=== PATIENT | male | born 1960 | race Caucasian/White ===

== ENCOUNTER 2020-08-13 13:10 | Outpatient (REF) | payer OTHER, SELFPAY | END 2020-08-13 13:11 | disposition home or self-care (01) | LOC: HO.LAB 13:10 | PROVIDERS: Visit Provider Internal Medicine | DX: Z20.828 Contact with and (suspected) exposure to other viral communicable diseases (principal) | CPT/HCPCS: 87635 ==

== ENCOUNTER 2021-03-01 07:42 | Outpatient (REF) | payer OTHER, SELFPAY ==
[2021-03-01 09:38] LABS: Alanine Aminotransferase 27 U/L (0-40); Albumin Level 4.4 g/dL (3.5-5.0); Alkaline Phosphatase 73 U/L (39-117); Anion Gap 12 (12-20); Aspartate Amino Transferase 19 U/L (5-37); Bilirubin Total 0.4 mg/dL (0.0-1.0); Blood Urea Nitrogen 18 mg/dL (9-16); Calcium 9.9 mg/dL (8.4-10.2); Carbon Dioxide 30 mmol/L (22-29); Chloride 105 mmol/L (96-108); Cholesterol 177 mg/dL; Estimated Glomerular Filt Rate > 60; Glucose Fasting 119 mg/dL (60-99); HDL Cholesterol 37 mg/dL; LDL Cholesterol Calculated 112 mg/dl; Potassium 4.7 mmol/L (3.3-5.1); Sodium 142 mmol/L (135-145); Total Protein 7.4 g/dL (6.5-8.0); Triglycerides 140 mg/dL
== END 2021-03-01 07:43 | disposition home or self-care (01) ==
LOC: HO.LAB 07:42
PROVIDERS: PCP Internal Medicine; Visit Provider Internal Medicine
DX: E78.00 Pure hypercholesterolemia, unspecified (principal)
CPT/HCPCS: 36415; 80053; 80061

== ENCOUNTER 2021-07-19 17:52 | Emergency (ER) | payer OTHER, SELFPAY ==
[2021-07-19 17:56] VITALS: BP 142/89; PULSE 98; RESP 18; TEMP 36.8; O2SAT 96; BMI 24.9
--- NOTE | 2021-07-19 22:00 | ED.GENADULT ---
HPI - General Adult General Chief complaint: General Medical Stated complaint: multiple complaints Time Seen by Provider: 07/19/21 21:56 Source: patient and old records reviewed History of Present Illness HPI narrative: Patient states yesterday was taking a shower and he noticed a ball formed in his right groin. No significant pain. He did have some mucus and a bowel movement. No nausea or vomiting. He has never had anything like this before. He denies any causative symptoms. No heavy lifting. No dysuria Related Data Previous Rx's Medication Instructions Recorded docusate sodium 100 mg capsule 100 mg PO DAILY PRN 90 Days #90 cap 08/28/20 (Colace) polyethylene glycol 3350 17 17 g PO DAILY 30 Days #510 g 08/28/20 gram/dose oral powder (Miralax) cyclobenzaprine 10 mg tablet 10 mg PO BEDTIME PRN 30 Days #30 11/27/20 tab ibuprofen 800 mg tablet 800 mg PO Q8H PRN 10 Days #30 tab 11/27/20 aspirin 81 mg tablet,delayed 81 mg PO DAILY #90 tab 05/03/21 release atorvastatin 20 mg tablet 20 mg PO DAILY 90 Days #90 tab 05/07/21 docusate sodium 100 mg capsule 100 mg PO BID #30 cap 07/19/21 (Colace) Allergies Allergy/AdvReac Type Severity Reaction Status Date / Time Penicillins [PENICILLINS] Allergy Intermediate HIVES Verified 07/19/21 17:56 Review of Systems Constitutional: Comments: No fevers Respiratory: Comments: No cough or difficulty breathing Gastrointestinal: Comments: No abdominal pain. No diarrhea. No constipation. Positive mucus in his stool this morning Genitourinary: Comments: Swelling in his right groin PMFSH Past Medical History Medical History (Updated 07/19/21 @ 22:35 by Timoteo Dubose MD) Constipation Hypertension Muscle pain Overweight (BMI 25.0-29.9) Pure hypercholesterolemia Surgical History Status post medial meniscus repair of left knee (~2015) Family History Family History Father Prostate cancer Mother Cancer Diabetes Social History Social History Advance Directives: No Advance Directives Information Provided: Yes Physical Exam Vital Signs: Vital Signs: Last Vital Signs Temp 98.2 F 07/19/21 17:56 Pulse 98 07/19/21 17:56 Resp 18 07/19/21 17:56 BP 142/89 H 07/19/21 17:56 Pulse Ox 96 07/19/21 17:56 Body Mass Index 24.9 Const: Other: Awake and alert and in no acute distress Resp: Other: No respiratory distress Cardio: Other: Regular rate and rhythm GI: Other: Soft nontender nondistended normoactive bowel sounds : Other: Patient was some fullness in his right inguinal canal. Consistent with early hernia. Worse with straining and coughing. No extension into the scrotum. He states he gets bigger when he strains to have a bowel movement Skin: Other: Warm pink and dry Course Course Course Narrative: Hernia Chronic constipation No evidence of acute bowel obstruction however. Given chronic constipation, will refer to GI. Given more recent incomplete hernia, will refer to surgery. Colace in the meantime Discharge Plan Discharge Clinical Impression: Constipation Qualifiers: Constipation type: unspecified constipation type Qualified Code(s): K59.00 - Constipation, unspecified Inguinal hernia Qualifiers: Obstruction and gangrene presence: without obstruction or gangrene Laterality: unilateral Recurrence: not specified as recurrent Qualified Code(s): K40.90 - Unilateral inguinal hernia, without obstruction or gangrene, not specified as recurrent Patient Disposition: Home, Self-Care Instructions: Constipation (ED), Inguinal Hernia (ED) Prescriptions: New docusate sodium [Colace] 100 mg capsule 100 mg PO BID Qty: 30 RF: 0 No Action aspirin 81 mg tablet,delayed release (DR/EC) 81 mg PO DAILY Qty: 90 RF: 0 atorvastatin 20 mg tablet 20 mg PO DAILY 90 Days Qty: 90 RF: 0 polyethylene glycol 3350 [Miralax] 17 gram/dose powder 17 g PO DAILY 30 Days Qty: 510 RF: 11 docusate sodium [Colace] 100 mg capsule 100 mg PO DAILY PRN (Reason: constipation) 90 Days Qty: 90 RF: 3 cyclobenzaprine 10 mg tablet 10 mg PO BEDTIME PRN (Reason: muscle spasm) 30 Days Qty: 30 RF: 0 ibuprofen 800 mg tablet 800 mg PO Q8H PRN (Reason: pain) 10 Days Qty: 30 RF: 0 Referrals: Nuria Stark MD [Physician] - 2 days
[2021-07-19 22:28] VITALS: BP 165/82; PULSE 61; RESP 16; TEMP 36.6; O2SAT 99
== END 2021-07-19 22:52 | disposition home or self-care (01) ==
PROVIDERS: Emergency Provider Emergency Medicine
DX: K59.00 Constipation, unspecified (principal); K40.90 Unilateral inguinal hernia, without obstruction or gangrene, not specified as recurrent; Z79.899 Other long term (current) drug therapy
CPT/HCPCS: 99283; 99284

== ENCOUNTER → 2021-08-11 10:23 | Outpatient (BNVA) | payer OTHER, SELFPAY | PROVIDERS: Referring Provider Internal Medicine; Visit Provider Nurse Practitioner Family ==

== ENCOUNTER → 2021-08-26 12:43 | Outpatient (BNVA) | payer OTHER, SELFPAY | PROVIDERS: PCP Internal Medicine; Visit Provider Surgery ==

== ENCOUNTER 2021-09-15 06:01 | Day surgery (SDC) | payer OTHER, SELFPAY ==
[2021-09-08 11:52] VITALS: BMI 24.7
--- NOTE | 2021-09-12 11:49 | HO.ANESPROP2 ---
Documented by User: Belinda Gonzalez NP 09/12/21 11:50 HPI - Anesthesia Eval Consult details Narrative: 60yo M for Bilateral Hernia Repair Inguinal with Mesh PMFSH Active Problems Active Problems: All Active Problems (Updated 08/26/21 @ 13:30 by Sage Wei MD) Bilateral inguinal hernia (Acute) Muscle pain (Acute) Overweight (BMI 25.0-29.9) (Acute) Pure hypercholesterolemia (Acute) Constipation (Acute) Past Medical History Medical History Bilateral inguinal hernia Constipation Hypertension Muscle pain Overweight (BMI 25.0-29.9) Pure hypercholesterolemia Family History Family History Father Prostate cancer Mother Cancer Diabetes Brother Prostate cancer Surgical History Surgical History H/O colonoscopy Status post medial meniscus repair of left knee Social History Social History Alcohol intake: never Patient Tobacco Use Status: Never used Tobacco Advance Directives Information Provided: Yes (informational brochure mailed) Advance Directives on File: No Meds Allergies Allergy/AdvReac Type Severity Reaction Status Date / Time Penicillins [PENICILLINS] Allergy Intermediate HIVES Verified 09/15/21 07:09 Exam Exam Date and Time: September 12, 2021 1149 Height,Weight and Vital Signs: Height 5 ft 8 in Weight 74 kg Assessment and Plan Assessment Anesthesia Assessment: Chart Reviewed Documented by User: Mikaela Rios MD 09/15/21 07:51 PMFSH Active Problems Active Problems: All Active Problems (Updated 08/26/21 @ 13:30 by Sage Wei MD) Bilateral inguinal hernia (Acute) Muscle pain (Acute) Overweight (BMI 25.0-29.9) (Acute) Pure hypercho he lesterolemia (Acute) Constipation (Acute) Past Medical History Medical History Bilateral inguinal hernia Constipation Hypertension Muscle pain Overweight (BMI 25.0-29.9) Pure hypercholesterolemia Family History Family History Father Prostate cancer Mother Cancer Diabetes Brother Prostate cancer Surgical History Surgical History H/O colonoscopy Status post medial meniscus repair of left knee History of Problems with Anesthesia: No Social History Social History Alcohol intake: never Patient Tobacco Use Status: Never used Tobacco Advance Directives Information Provided: Yes (informational brochure mailed) Advance Directives on File: No Meds Allergies Allergy/AdvReac Type Severity Reaction Status Date / Time Penicillins [PENICILLINS] Allergy Intermediate HIVES Verified 09/15/21 07:09 Exam Airway Mallampati Class: II TM Dist: >3cm Neck ROM: Full Loose/Missing/Broken Teeth: No Heart: RRR Lungs: CTA Assessment and Plan Final Anesthetic Review History of Problems with Anesthesia: No NPO: Yes ASA Class: II Final Preanesthetic Review: Meds/Allgs Chart Reviewed, Consent Obtained/Reviewed and Anes Risks/Benef Reviewed Patient Risk: Low Procedure Risk: Low Anesthetic Plan Anesthetic Plan: GA Disposition: Standard PACU
[2021-09-15] VITALS (7 sets, daily range): BP systolic 107–160; BP diastolic 54–84; PULSE 66–80; RESP 16–20; TEMP 36.3–37.4; O2SAT 97–99; BMI 25.4
--- NOTE | 2021-09-15 06:30 | PC.NURSE ---
Verified Vancomycin 1000mg dose with Faby from Pharmacy.
[2021-09-15] MEDS: Lactated Ringers 1,000 ML 100 ML IVCONT (06:34)
[2021-09-15] MEDS: vancomycin HCL 1,000 MG in 0.9 % Sodium Chloride 250 ML 270 MG IV (06:37)
--- NOTE | 2021-09-15 08:59 | W.PM.OPN ---
Operative Note Operative Note Date of Service: 09/15/21 Narrative: Preoperative diagnosis: Bilateral inguinal hernias Postoperative diagnosis: same Procedure: repair of bilateral inguinal hernias with mesh Surgeon: Sage Wei MD Screen Room Operator: Maritza Gonzalez PA-C Anesthesia: general LMA Indications for procedure: 60-year-old male patient presenting with palpable lumps bilateral groins which increases with lifting and straining. On examination patient is found to have bilateral inguinal hernias. Operative findings: Bilateral direct inguinal hernias Specimen: none Estimated blood loss: 5 mL Complications: none Procedure details: patient was brought to the OR placed in a supine position. After administering general anesthesia the patient's abdomen was prepped with ChloraPrep and draped in a sterile fashion. A surgical time-out was called the consent confirmed. Patient received preoperative antibiotics and Venodyne boots were in place. Local anesthesia was infiltrated over the left inguinal ligament. Consisted of Sensorcaine 0.5% plain. Incision was then made over the left inguinal ligament and carried out through subcutaneous tissue, past Bailee's fascia, and up to the external oblique aponeurosis. Additional local was infiltrated below the aponeurosis. The aponeurosis was then incised with a scalpel wide with scissors. The spermatic cord was then dissected free from the surrounding inguinal canal. This was then retracted using a Nadeen drain. The spermatic cord was explored and no indirect sac could be identified. A small direct hernia was identified immediately however. This was easily reducible and contained only preperitoneal fat. Fibers of the internal oblique and transversalis aponeurosis were then divided and the preperitoneal space entered. This was then widened using an open Ray-Anna which. A large PHS mesh was then obtained in the circular underlay deployed into the preperitoneal space. The overlay was then secured to the pubic tubercle, conjoined tendon, and shelving edge of the inguinal ligament using 0 Polysorb sutures. A slit was made in the mesh level of the internal ring and the mesh wrapped around the spermatic cord at the internal ring. This was done using 0 Polysorb sutures as well. The mesh was then irrigated with saline solution and suctioned dry. Attention was then directed to the right groin where again local anesthesia was infiltrated over the right inguinal ligament. Incision was then made over the inguinal ligament with a scalpel carried out through subcutaneous tissue, past Bailee's fascia, and up to the external oblique aponeurosis. Additional local was infiltrated below the external oblique aponeurosis. The aponeurosis was then incised in direction of its fibers. Was then widened with the Metzenbaum scissors. Spermatic cord was then dissected free from the surrounding inguinal canal. It was then retracted using a Nadeen drain. Once again a direct inguinal hernia was identified. No indirect hernia could be identified. Fibers of the internal oblique and transversalis aponeurosis were then incised in the preperitoneal space entered. This was then widened using a open Ray-Anna sponge. A large PHS mesh was then obtained. The circular underlay was then deployed into the preperitoneal space. The overlay was secured to the pubic tubercle, conjoined tendon, and shelving edge of the inguinal ligament using the 0 Polysorb suture. A slit was made in the mesh and the mesh wrapped around the spermatic cord at the internal ring. This was then secured to the shelving edge of the inguinal ligament using the 0 Polysorb suture. The mesh was once again irrigated with saline solution and suctioned dry. External oblique aponeurosis was closed at both incisions using a running 2 0 polyp suture. Bailee's fascia, dermis were closed using interrupted 3-0 Polysorb sutures. Skin was closed at both incisions using a running subcuticular 4-0 Polysorb suture. Steri-Strips 2 x 2 gauze and Tegaderm were then applied. Patient tolerated the procedure well. Sponge, instrument, and needle counts were reported as correct. Patient was transferred to PACU in stable condition.
--- NOTE | 2021-09-15 09:06 | MHC.SHP ---
Pre-Procedural Eval Section A Date of Service: 09/15/21 The patient is an INPATIENT: No Changes since office visit: Yes Patient answered all questions; No Cold of Flu in the past 2 weeks, No New Medical Problems and No Changes in Medication The History & Physical has been completed within 30 days and I have reviewed it.: Yes Section B Chief Complaint: Bilateral Inguinal hernia Allergies: Allergies Allergy/AdvReac Type Severity Reaction Status Date / Time Penicillins [PENICILLINS] Allergy Intermediate HIVES Verified 09/15/21 07:09 Plan Diagnosis/Plan: Unchanged I have reviewed the history and physical and performed a pertinent physical examination on my patient. No changes have occurred unless specified.
[2021-09-15] MEDS: Acetaminophen 325 MG TABLET 650 MG PO (09:28)
== END 2021-09-15 10:19 | disposition home or self-care (01) ==
PROVIDERS: PCP Internal Medicine; Visit Provider Surgery
PROC: (CPT 49505; principal; 2021-09-15 07:30)
DX: K40.20 Bilateral inguinal hernia, without obstruction or gangrene, not specified as recurrent (principal); K59.00 Constipation, unspecified; I10 Essential (primary) hypertension; E78.00 Pure hypercholesterolemia, unspecified; Z79.82 Long term (current) use of aspirin; Z79.899 Other long term (current) drug therapy; Z88.0 Allergy status to penicillin
CPT/HCPCS: 49505; C1781; J1100; J2250; J2405; J3010; J3370

== ENCOUNTER → 2021-09-26 10:23 | Outpatient (BNVA) | payer OTHER, SELFPAY | PROVIDERS: PCP Internal Medicine; Referring Provider Nurse Practitioner Family; Visit Provider Surgery ==

== ENCOUNTER → 2021-09-30 10:43 | Outpatient (BNVA) | payer OTHER, SELFPAY | PROVIDERS: PCP Internal Medicine; Referring Provider Nurse Practitioner Family; Visit Provider Nurse Practitioner Family ==

== ENCOUNTER 2021-10-01 05:55 | Outpatient (REF) | payer OTHER, SELFPAY ==
[2021-10-01 06:22] LABS: MANUAL DIFF FLAG NO
[2021-10-01 07:16] LABS: Basophils Percent Auto 0.6 % (0-2); Eosinophils Absolute Auto 0.1 X10*3/uL (0.0-0.4); Eosinophils Percent Auto 2.1 % (0-4); Hematocrit 41.2 % (42.0-52.0); Hemoglobin 13.7 g/dl (14.0-18.0); Imm Gran Abs Auto 0.03 X10*3/uL (0.00-0.03); Imm Gran Pct Auto 0.5 % (0.0-0.4); Lymphocytes Percent Auto 31.3 % (20-40); Mean Corpuscular HGB Conc 33.3 g/dl (31.0-36.0); Mean Corpuscular Hemoglobin 30.9 pg (27.0-33.0); Mean Corpuscular Volume 92.8 fL (80.0-98.0); Mean Platelet Volume 10.4 fL (9.4-12.4); Monocytes Absolute Auto 0.5 X10*3/uL (0.1-1.2); Monocytes Percent Auto 8.7 % (2-11); Neutrophils Absolute Auto 3.5 x10*3/uL (2.0-8.3); Neutrophils Percent Auto 56.8 % (45-73); Platelet Count 221 X10*3/uL (160-400); Red Blood Count 4.44 X10*6/uL (4.60-5.80); Red Cell Distribution Width 12.7 % (11.0-16.0); White Blood Count 6.2 X10*3/uL (4.8-10.8)
[2021-10-01 07:28] LABS: Estimated Average Glucose 114 mg/dL; Hemoglobin A1C 159.2054 umol/L; Hemoglobin A1c % 5.6 %
[2021-10-01 07:43] LABS: Alanine Aminotransferase 20 U/L (0-40); Albumin Level 4.2 g/dL (3.5-5.0); Alkaline Phosphatase 68 U/L (39-117); Anion Gap 11 (12-20); Aspartate Amino Transferase 15 U/L (5-37); Bilirubin Total 0.5 mg/dL (0.0-1.0); Blood Urea Nitrogen 15 mg/dL (9-16); Calcium 9.8 mg/dL (8.4-10.2); Carbon Dioxide 28 mmol/L (22-29); Chloride 105 mmol/L (96-108); Cholesterol 194 mg/dL; Estimated Glomerular Filt Rate > 60; Glucose Random 105 mg/dL (60-115); HDL Cholesterol 37 mg/dL; LDL Cholesterol Calculated 109 mg/dl; Potassium 4.3 mmol/L (3.3-5.1); Sodium 140 mmol/L (135-145); Total Protein 7.2 g/dL (6.5-8.0); Triglycerides 243 mg/dL
[2021-10-01 07:54] LABS: Creatinine Urine 83.86 mg/dL; Microalbumin Urine < 5.0 mg/L
[2021-10-01 08:00] LABS: ~HepC Num1 0.15 S/CO (0.00-0.79); ~Hepatitis C Antibody Nonreactive (Nonreactive)
[2021-10-01 08:01] LABS: Hepatitis A Antibody IgG REACTIVE (Nonreactive); ~Hepatitis A Antibody IgG 12.08 S/CO (0.00-0.99)
[2021-10-01 08:02] LABS: HBc Num1 0.07 S/CO (0.00-0.79); HBsAGNum1 0.24 S/CO (0.00-0.99); Hepatitis B Core Antibody Nonreactive (Nonreactive); Hepatitis B Surface Antigen Negative (Negative)
[2021-10-01 08:08] LABS: Prostate Specific Antigen 0.77 ng/mL (<0.05-4.0); TSH reflex Free T4 7.46 uIU/mL (0.32-4.0); Vitamin D 25-OH Total 33.5 ng/mL (>30)
[2021-10-01 08:15] LABS: HBS Num1 5.41 mIU/mL (0-7.99); HIV AB/AG Nonreactive (Nonreactive); HIV Num 1 0.09 S/CO (0.00-0.99); ~Hepatitis B Surface Antibody NONREACTIVE (Nonreactive)
[2021-10-01 08:49] LABS: Free T4 (Free Thyroxine) 0.94 ng/dL (0.71-1.85)
== END 2021-10-01 05:56 | disposition home or self-care (01) ==
LOC: HO.LAB 05:55
PROVIDERS: PCP Nurse Practitioner Family; Visit Provider Nurse Practitioner Family
DX: Z00.00 Encounter for general adult medical examination without abnormal findings (principal); Z11.4 Encounter for screening for human immunodeficiency virus [HIV]; K40.21 Bilateral inguinal hernia, without obstruction or gangrene, recurrent; K59.09 Other constipation
CPT/HCPCS: 36415; 80053; 80061; 82043; 82306; 83036; 84153; 84439; 84443; 85025; 86704; 86706; 86708; 86803; 87340; 87389

== ENCOUNTER 2021-10-10 07:52 | Outpatient (REF) | payer OTHER, SELFPAY ==
[2021-10-10 10:15] LABS: COVID-19 Test Negative (Negative)
== END 2021-10-10 07:53 | disposition home or self-care (01) ==
LOC: HO.LAB 07:52
PROVIDERS: Visit Provider Internal Medicine
DX: Z20.822 Contact with and (suspected) exposure to COVID-19 (principal)
CPT/HCPCS: 36415; 87635; C9803

== ENCOUNTER 2021-11-04 07:02 | Outpatient (REF) | payer OTHER, SELFPAY ==
[2021-11-04 07:28] LABS: MANUAL DIFF FLAG NO
[2021-11-04 07:56] LABS: Basophils Percent Auto 0.8 % (0-2); Eosinophils Absolute Auto 0.1 X10*3/uL (0.0-0.4); Eosinophils Percent Auto 1.9 % (0-4); Hematocrit 42.2 % (42.0-52.0); Hemoglobin 14.3 g/dl (14.0-18.0); Imm Gran Abs Auto 0.01 X10*3/uL (0.00-0.03); Imm Gran Pct Auto 0.2 % (0.0-0.4); Immature Retic Fraction 9.6 % (2.3-13.4); Lymphocytes Absolute Auto 1.9 X10*3/uL (1.2-4.9); Lymphocytes Percent Auto 36.4 % (20-40); Mean Corpuscular HGB Conc 33.9 g/dl (31.0-36.0); Mean Corpuscular Volume 91.3 fL (80.0-98.0); Mean Platelet Volume 10.3 fL (9.4-12.4); Monocytes Absolute Auto 0.5 X10*3/uL (0.1-1.2); Monocytes Percent Auto 9.3 % (2-11); Neutrophils Absolute Auto 2.7 x10*3/uL (2.0-8.3); Neutrophils Percent Auto 51.4 % (45-73); Platelet Count 186 X10*3/uL (160-400); Red Blood Count 4.62 X10*6/uL (4.60-5.80); Red Cell Distribution Width 12.7 % (11.0-16.0); Reticulocyte Percent 1.7 % (0.5-1.8); White Blood Count 5.3 X10*3/uL (4.8-10.8)
[2021-11-04 08:16] LABS: Iron 96 mcg/dL (45-160); Percent Iron Saturation 29 % (15-50); Total Iron Binding Capacity 329 mcg/dL (228-428); Unsaturated Iron Binding 233 ug/dL
[2021-11-04 08:38] LABS: Ferritin 168 ng/mL (20-250); T4 Thyroxine 8.1 ug/dL (4.5-12.0)
[2021-11-05 08:05] LABS: FIT Int Ctl YES; FIT1 NEGATIVE (NEGATIVE); FIT2 NEGATIVE (NEGATIVE)
[2021-11-06 00:16] LABS: Triiodothyronine T3 Free 3.4 pg/mL (2.3-4.2)
== END 2021-11-04 07:03 | disposition home or self-care (01) ==
LOC: HO.LAB 07:02
PROVIDERS: PCP Nurse Practitioner Family; Visit Provider Nurse Practitioner Family
DX: D64.9 Anemia, unspecified (principal); M79.10 Myalgia, unspecified site; R79.89 Other specified abnormal findings of blood chemistry
CPT/HCPCS: 36415; 82274; 82728; 83540; 84436; 84443; 84481; 85025; 85045

== ENCOUNTER → 2021-11-07 08:59 | Outpatient (BNVA) | payer OTHER, SELFPAY | PROVIDERS: PCP Nurse Practitioner Family; Referring Provider Nurse Practitioner Family; Visit Provider Surgery ==

== ENCOUNTER 2021-11-20 11:21 | Outpatient (REF) | payer OTHER, SELFPAY ==
[2021-11-20 13:32] LABS: T4 Thyroxine 6.9 ug/dL (4.5-12.0); Thyroid Stimulating Hormone 4.27 uIU/mL (0.32-4.0)
[2021-11-21 06:01] LABS: Triiodothyronine T3 Free 3.3 pg/mL (2.3-4.2)
== END 2021-11-20 11:22 | disposition home or self-care (01) ==
LOC: HO.LAB 11:21
PROVIDERS: Absent Provider Nurse Practitioner Family; PCP Nurse Practitioner Family; Visit Provider Nurse Practitioner Family
DX: M79.10 Myalgia, unspecified site (principal); R79.89 Other specified abnormal findings of blood chemistry
CPT/HCPCS: 36415; 82550; 84436; 84443; 84481

== ENCOUNTER → 2021-12-29 10:46 | Outpatient (BNVA) | payer OTHER, SELFPAY | PROVIDERS: PCP Nurse Practitioner Family; Referring Provider Nurse Practitioner Family; Visit Provider Nurse Practitioner Family ==

== ENCOUNTER → 2022-01-15 13:37 | Outpatient (BNVA) | payer OTHER, SELFPAY | PROVIDERS: PCP Nurse Practitioner Family; Visit Provider Surgery | DX: R10.32 Left lower quadrant pain (principal); Z87.19 Personal history of other diseases of the digestive system; Z79.899 Other long term (current) drug therapy ==

== ENCOUNTER 2022-02-14 08:52 | Outpatient (REF) | payer OTHER, SELFPAY ==
[2022-02-14 09:43] LABS: Blood Urea Nitrogen 17 mg/dL (9-16); Estimated Glomerular Filt Rate > 60
== END 2022-02-14 08:53 | disposition home or self-care (01) ==
LOC: HO.LAB 08:52
PROVIDERS: PCP Nurse Practitioner Family; Visit Provider Surgery
DX: R10.32 Left lower quadrant pain (principal); K40.20 Bilateral inguinal hernia, without obstruction or gangrene, not specified as recurrent
CPT/HCPCS: 36415; 82565; 84520

== ENCOUNTER 2022-02-23 08:19 | Outpatient (REF) | payer OTHER, SELFPAY ==
--- NOTE | ~2022-02-23 | CT_ITS ---
EXAMINATION: CT ABDOMEN AND PELVIS WITH CONTRAST CLINICAL INFORMATION: Bilateral inguinal hernia COMPARISON: Previous abdominal ultrasound August 2014 TECHNIQUE: Multidetector volumetric images were obtained from the superior aspect of the liver through the pubic symphysis following administration 85 mL of Omnipaque 350 intravenous contrast. Sagittal and coronal reformatted images were obtained on the technologist's workstation. Oral contrast: Yes This CT examination was performed using dose optimization techniques as appropriate, variously including the following: *Automated exposure control *Adjustment of mA and/or kV according to patient size (this includes techniques or standardized protocols for targeted exams where dose is matched to indication/reason for exam; i.e. extremities or head) *Use of iterative reconstruction technique DLP: 351 mGy-cm FINDINGS: LUNG BASES: The visualized lung bases are unremarkable. LIVER, GALLBLADDER, AND BILIARY TREE: The liver is normal in size, contour and attenuation. There is a small cyst seen in the peripheral right lobe of the liver coronal reconstructed image 49 and sagittal image 86. No other focal liver lesion. The gallbladder is normal. There is no biliary duct dilatation. PANCREAS: Unremarkable. SPLEEN: Unremarkable. ADRENAL GLANDS: Unremarkable. KIDNEYS AND URETERS: The kidneys are normal in size, shape, and attenuation. No hydronephrosis, hydroureter, or calculi seen. No perinephric stranding. BLADDER: Unremarkable. GASTROINTESTINAL TRACT: There is very mild diverticulosis of the colon. The small and large bowel are otherwise unremarkable. The appendix is unremarkable. ABDOMINAL WALL: No significant hernia is appreciated. LYMPH NODES: Normal. VASCULAR: There is evidence of atherosclerotic disease. No aneurysm is seen. PELVIC VISCERA: Slightly enlarged measuring 3.4 x 4.4 cm. OSSEOUS STRUCTURES: There are degenerative changes of the spine. CT/CT abdomen pelvis w con IMPRESSION: No significant hernia is seen. Small liver cyst. Mild diverticulosis of the colon. Slightly enlarged prostate gland. Fleischner guidelines were followed.
[2022-02-23] MEDS: iohexoL 350 MG/ML 100 ML INFUS..BTL IV (11:17)
[2022-02-23] MEDS: Barium Sulfate Oral (Mocha) 450 ML ORAL.SUSP 900 ML PO (11:18)
== END 2022-02-23 08:20 | disposition home or self-care (01) ==
LOC: HO.CT 08:19
PROVIDERS: PCP Nurse Practitioner Family; Visit Provider Surgery
DX: K40.20 Bilateral inguinal hernia, without obstruction or gangrene, not specified as recurrent (principal)
CPT/HCPCS: 74177; Q9967

== ENCOUNTER → 2022-02-27 11:37 | Outpatient (BNVA) | payer OTHER, SELFPAY | PROVIDERS: PCP Nurse Practitioner Family; Referring Provider Nurse Practitioner Family; Visit Provider Surgery | DX: Z13.89 Encounter for screening for other disorder (principal) ==